=== PATIENT | female | born 1995 | race Caucasian/White ===

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

== ENCOUNTER 2018-09-27 11:23 | Emergency (ER) | payer OTHER ==
[2018-09-27 12:17] VITALS: BP 116/54
[2018-09-27] MEDS ORDERED: ONDANSETRON HCL INJ/PF 4 MG/2 ML SDV IV ONE (12:54)
[2018-09-27] MEDS ORDERED: NORMAL SALINE 1000 ML 1,000 ML IV ONE (12:55)
--- NOTE | 2018-09-27 12:56 | ER Document Report ---
ED Medical Screen (RME) - General Chief Complaint: Vomiting Stated Complaint: POSSIBLE DEHYDRATION Time Seen by Provider: 09/27/18 12:50 Primary Care Provider: KAMILAH MODI MD [Primary Care Provider] - Follow up as needed TRAVEL OUTSIDE OF THE [place] IN LAST 30 DAYS: No - HPI Notes: 09/27/18 12:55 Patient is a 23-year-old female is 39 weeks who presents complaining of nausea and vomiting that began this morning. Patient states that she cannot keep anything down. Patient states that she also started having light contractions yesterday with last episode being here in our waiting room. She was told by the [facility] that they would come down and do an NST here. She is otherwise urinating normally and having normal bowel movements. Denies drug allergies. Denies PICKETT, fever, neck pain, URI, CP, SOB, dysuria, or rash. I have treated and performed a rapid initial assessment of this patient. A comprehensive ED assessment and evaluation of the patient, analysis of test results and completion of medical decision making process will be conducted by additional ED providers. PHYSICAL EXAMINATION: GENERAL: Well-appearing, well-nourished and in no acute distress. A&Ox4. Answers questions appropriately. LUNGS: Breath sounds clear to auscultation bilaterally and equal. No wheezes rales or rhonchi. HEART: Regular rate and rhythm without murmurs, rubs, gallops. ABDOMEN: Soft, gravid abdomen. No guarding, no rebound. Normal bowel sounds present. No CVA tenderness bilaterally (cannot elicit thorough abd exam w/o bed, however). - Related Data Allergies/Adverse Reactions: No Known Allergies Allergy (Verified 11/25/16 21:31) Physical Exam - Vital signs Vitals: Temp Pulse Resp BP Pulse Ox 98.3 F 103 H 18 116/54 L 100 09/27/18 12:15 09/27/18 12:15 09/27/18 12:15 09/27/18 12:15 09/27/18 12:15 Course - Vital Signs Vital signs: Temp Pulse Resp BP Pulse Ox 98.3 F 103 H 18 116/54 L 100 09/27/18 12:15 09/27/18 12:15 09/27/18 12:15 09/27/18 12:15 09/27/18 12:15 Doctor's Discharge - Discharge Referrals: KAMILAH MODI MD [Primary Care Provider] - Follow up as needed
[2018-09-27 14:09] LABS: ABSOLUTE MONOCYTES (AUTO) 0.7 10^3/uL (0.1-1.4); ABSOLUTE NEUT (AUTO) 9.7 10^3/uL (1.7-8.2); BASOPHILS % (AUTO) 0.3 % (0-2); EOSINOPHILS % (AUTO) 0.1 % (0-6); HEMATOCRIT 26.9 % (36.0-47.0); HEMOGLOBIN 8.5 g/dL (12.0-15.5); LYMPHOCYTES % (AUTO) 8.4 % (13-45); MEAN CORPUSCULAR HEMOGLOBIN 21.7 pg (27.0-33.4); MEAN CORPUSCULAR HGB CONC 31.5 g/dL (32.0-36.0); MEAN CORPUSCULAR VOLUME 69 fl (80-97); PLATELET COUNT 335 10^3/uL (150-450); RED BLOOD COUNT 3.91 10^6/uL (3.72-5.28); SEGMENTED NEUTROPHILS % (AUTO) 85.2 % (42-78); TOTAL CELLS COUNTED % (AUTO) 100 %; WHITE BLOOD COUNT 11.4 10^3/uL (4.0-10.5)
--- NOTE | 2018-09-27 14:14 | ER Document Report ---
ED General - General Chief Complaint: Vomiting Stated Complaint: POSSIBLE DEHYDRATION Time Seen by Provider: 09/27/18 12:50 Primary Care Provider: KAMILAH MODI MD [Primary Care Provider] - Follow up as needed TRAVEL OUTSIDE OF THE [place] IN LAST 30 DAYS: No - HPI Notes: 23-year-old female to the emergency department with complaints of nausea and vomiting that started this morning and low back pain and abdominal pain consistent with contractions that began last night. She states that she is 39 weeks with her second child. States the contractions, every 10 minutes and last anywhere from 45 to 60 seconds. Denies any fevers, chills, diarrhea, headache, chest pain, shortness of breath. She was sent here by women's health clinic for further evaluation. She has not had any bloody discharge since her symptoms began. - Related Data Allergies/Adverse Reactions: No Known Allergies Allergy (Verified 09/27/18 14:54) Past Medical History - General Information source: Patient - Social History Smoking Status: Never Smoker Frequency of alcohol use: None Drug Abuse: None Family History: Reviewed & Not Pertinent Patient has suicidal ideation: No Patient has homicidal ideation: No Renal/ Medical History: Denies: Hx Peritoneal Dialysis Past Surgical History: Reports: Hx Oral Surgery - wisdom teeth Review of Systems - Review of Systems Constitutional: denies: Chills, Fever EENT: No symptoms reported Cardiovascular: denies: Chest pain, Palpitations, Heart racing, Syncope, Dizziness, Lightheaded Respiratory: denies: Cough, Short of breath Gastrointestinal: Abdominal pain, Nausea, Vomiting. denies: Diarrhea Musculoskeletal: No symptoms reported Skin: No symptoms reported Neurological/Psychological: denies: Weakness, Numbness -: Yes All other systems reviewed and negative Physical Exam - Vital signs Vitals: Temp Pulse Resp BP Pulse Ox 98.3 F 103 H 18 116/54 L 100 09/27/18 12:15 09/27/18 12:15 09/27/18 12:15 09/27/18 12:15 09/27/18 12:15 Interpretation: Tachycardic - General General appearance: Appears well In distress: None - HEENT Head: Normocephalic, Atraumatic - Respiratory Respiratory status: No respiratory distress Chest status: Nontender Breath sounds: Normal Chest palpation: Normal - Cardiovascular Rhythm: Regular Heart sounds: Normal auscultation Murmur: No - Abdominal Inspection: Gravid female - Gravid abdomen with fundus well above the umbilicus consistent with 39 weeks. Not currently juana. Reports last contraction while in waiting room. Bowel sounds: Normal Tenderness: Nontender - Back Back: Normal, Nontender - Neurological Neuro grossly intact: Yes Cognition: Normal Orientation: AAOx4 [place] Coma Scale Eye Opening: Spontaneous [place] Coma Scale Verbal: Oriented [place] Coma Scale Motor: Obeys Commands [place] Coma Scale Total: 15 Speech: Normal Motor strength normal: LUE, RUE, LLE, RLE Sensory: Normal - Psychological Associated symptoms: Normal affect, Normal mood - Skin Skin Temperature: Warm Skin Moisture: Dry Skin Color: Normal Course - Vital Signs Vital signs: Temp Pulse Resp BP Pulse Ox 98.3 F 103 H 18 116/54 L 100 09/27/18 12:15 09/27/18 12:15 09/27/18 12:15 09/27/18 12:15 09/27/18 12:15 - Laboratory Result Diagrams: 09/27/18 13:47 09/27/18 13:49 Laboratory results interpreted by me: 09/27/18 09/27/18 09/27/18 13:47 13:49 13:49 WBC 11.4 H Hgb 8.5 L Hct 26.9 L MCV 69 L MCH 21.7 L MCHC 31.5 L RDW 17.0 H Seg Neutrophils % 85.2 H Lymphocytes % 8.4 L Absolute Neutrophils 9.7 H Sodium 135.9 L Carbon Dioxide 21 L Creatinine 0.46 L Glucose 64 L Urine Ketones 80 H - Transfer of Care Notes: 09/27/18 14:[address] Warren. She agrees that patient that OB should be called as patient with 39 weeks with nausea vomiting and symptoms consistent with contractions should go to labor and delivery. Dr. Godwin, HOR[employer]AN[employer]ER on-call. She agrees that patient should come to labor and delivery. Spoke with iesha Jesus RN in labor and delivery. Explained to her patient's symptoms and discussion with Dr. Godwin. She where the patient will be sent to labor and delivery. 09/27/18 IMpression: Nausea, vomiting, abdominal pain in 39 week patient. Will send to [facility] for further OB care. Discharge - Discharge Clinical Impression: Abdominal pain, 39 weeks gestation of , Vomiting Disposition: LABOR CHECK Additional Instructions: proceed directly to labor and delivery for further management. Referrals: KAMILAH MODI MD [Primary Care Provider] - Follow up as needed
[2018-09-27 14:18] LABS: APPEARANCE,URINE SLIGHTLY-CLOUDY; BILIRUBIN,URINE NEGATIVE (NEGATIVE); COLOR,URINE YELLOW; GLUCOSE, URINE NEGATIVE (NEGATIVE); KETONES,URINE 80 mg/dL (NEGATIVE); LEUKOCYTE ESTERASE,URINE NEGATIVE (NEGATIVE); NITRITE,URINE NEGATIVE (NEGATIVE); PROTEIN,URINE NEGATIVE (NEGATIVE); URINE SPECIFIC GRAVITY 1.024; UROBILINOGEN,URINE NEGATIVE mg/dL (<2.0)
[2018-09-27 14:28] LABS: ALANINE AMINOTRANSFERASE 22 U/L (9-52); ALBUMIN 3.8 g/dL (3.5-5.0); ALKALINE PHOSPHATASE 125 U/L (38-126); ANION GAP 10 (5-19); ASPARTATE AMINO TRANSFERASE 25 U/L (14-36); BILIRUBIN,DIRECT 0.2 mg/dL (0.0-0.4); BILIRUBIN,TOTAL 0.5 mg/dL (0.2-1.3); BLOOD UREA NITROGEN 11 mg/dL (7-20); CALCIUM 9.4 mg/dL (8.4-10.2); CARBON DIOXIDE 21 mmol/L (22-30); CHLORIDE 105 mmol/L (98-107); LIPASE 108.2 U/L (23-300); POTASSIUM 4.1 mmol/L (3.6-5.0); SODIUM 135.9 mmol/L (137-145); TOTAL PROTEIN 6.7 g/dL (6.3-8.2)
[2018-09-27 14:31] LABS: GLUCOSE 64 mg/dL (75-110)
== END 2018-09-27 14:14 | disposition admitted as inpatient to this hospital (09) ==
LOC: ER 11:23
DX: O21.2 Late vomiting of pregnancy (principal); O26.893 Other specified pregnancy related conditions, third trimester; R10.9 Unspecified abdominal pain; O99.89 Other specified diseases and conditions complicating pregnancy, childbirth and the puerperium; M54.5 Low back pain; Z3A.39 39 weeks gestation of pregnancy
CPT/HCPCS: 99284; 96361; 96374; 36415; 83690; 85025; 80053; 81001; J2405; J7030

== ENCOUNTER 2018-09-27 14:05 | Outpatient (CLI) | payer OTHER ==
[2018-09-27] MEDS ORDERED: RINGERS SOLUTION,LACTATED 1,000 ML IV PRN (14:31)
[2018-09-27] MEDS ORDERED: RINGERS SOLUTION,LACTATED 1,000 ML IV ONE (15:00)
[2018-09-27 15:59] LABS: URINE AMPHETAMINES SCREEN NEGATIVE; URINE BARBITURATES SCREEN NEGATIVE; URINE BENZODIAZEPINES SCREEN NEGATIVE; URINE COCAINE SCREEN NEGATIVE; URINE MARIJUANA (THC) SCREEN NEGATIVE; URINE METHADONE SCREEN NEGATIVE; URINE PHENCYCLIDINE SCREEN NEGATIVE
--- NOTE | 2018-09-27 16:48 | Non Stress Test Report ---
Non Stress Test Datetime Report Generated by CPN: 09/27/2018 16:48 DEMOGRAPHIC EGA NST: 38.5 INDICATION Indication for Study: Ordered by Provider MONITORING Monitor Explained: Monitor Explained; Test Explained; Patient Verbalized Understanding Time on Monitor: 09/27/2018 14:30 Time off Monitor: 09/27/2018 16:21 NST Duration: 111 NST INTERVENTIONS NST Interventions: PO Hydration; IV Fluids Physician Notified NST: Dr. Tato BABY A: [id number] BABY A Movement : Present Contraction Frequency : irregular FHR Baseline : 130 Accelerations : 15X15 Decelerations : None Variability : Moderate 6-25bpm NST Review: Meets Criteria for Reactive NST NST Review and Verified By : LILI DISLA Results: Reactive NST REPORT Report Trigger: Send Report
[2018-09-27 16:59] LABS: APPEARANCE,URINE SLIGHTLY-CLOUDY; BILIRUBIN,URINE NEGATIVE (NEGATIVE); COLOR,URINE YELLOW; GLUCOSE, URINE NEGATIVE (NEGATIVE); KETONES,URINE 80 mg/dL (NEGATIVE); LEUKOCYTE ESTERASE,URINE NEGATIVE (NEGATIVE); NITRITE,URINE NEGATIVE (NEGATIVE); PROTEIN,URINE NEGATIVE (NEGATIVE); URINE SPECIFIC GRAVITY 1.026; UROBILINOGEN,URINE NEGATIVE mg/dL (<2.0)
== END 2018-09-27 17:11 | disposition home or self-care (01) ==
LOC: LC 14:05
PROVIDERS: ATTEND Obstetrics & Gynecology
PROC: 4A1HXCZ Monitoring of Products of Conception, Cardiac Rate, External Approach (ICD-10-PCS; principal; 2018-09-27)
DX: O47.1 False labor at or after 37 completed weeks of gestation (principal); O99.283 Endocrine, nutritional and metabolic diseases complicating pregnancy, third trimester; E86.0 Dehydration; Z3A.38 38 weeks gestation of pregnancy
CPT/HCPCS: 59025; 80307; 81001

== ENCOUNTER 2018-10-01 06:29 | Inpatient (IN) | payer OTHER ==
[2018-10-01] MEDS ORDERED: OXYTOCIN/NORMAL SALINE 20 UNIT/1,000 ML RTUINJ IV PRN ×2 (06:45→16:06)
[2018-10-01] MEDS ORDERED: DINOPROSTONE 10 MG VAGINAL INSERT.SR PV PRN (06:45)
[2018-10-01] MEDS ORDERED: RINGERS SOLUTION,LACTATED 300 ML IV ONE (06:45)
[2018-10-01] MEDS: RINGERS SOLUTION,LACTATED 1,000 ML IV PRN ×4 (07:30→13:41)
[2018-10-01 07:36] LABS: ABSOLUTE LYMPHOCYTES (AUTO) 1.6 10^3/uL (0.5-4.7); ABSOLUTE MONOCYTES (AUTO) 0.7 10^3/uL (0.1-1.4); ABSOLUTE NEUT (AUTO) 4.3 10^3/uL (1.7-8.2); BASOPHILS % (AUTO) 0.2 % (0-2); EOSINOPHILS % (AUTO) 0.2 % (0-6); HEMATOCRIT 24.9 % (36.0-47.0); LYMPHOCYTES % (AUTO) 24.3 % (13-45); MEAN CORPUSCULAR HEMOGLOBIN 22.1 pg (27.0-33.4); MEAN CORPUSCULAR HGB CONC 31.9 g/dL (32.0-36.0); MEAN CORPUSCULAR VOLUME 69 fl (80-97); MONOCYTES % (AUTO) 10.5 % (3-13); PLATELET COUNT 351 10^3/uL (150-450); RED CELL DISTRIBUTION WIDTH 17.6 % (11.5-14.0); SEGMENTED NEUTROPHILS % (AUTO) 64.8 % (42-78); TOTAL CELLS COUNTED % (AUTO) 100 %; WHITE BLOOD COUNT 6.7 10^3/uL (4.0-10.5)
[2018-10-01 07:44] LABS: HEMOGLOBIN 7.9 g/dL (12.0-15.5)
[2018-10-01 07:52] LABS: APPEARANCE,URINE CLOUDY; BILIRUBIN,URINE NEGATIVE (NEGATIVE); GLUCOSE, URINE NEGATIVE (NEGATIVE); KETONES,URINE NEGATIVE (NEGATIVE); LEUKOCYTE ESTERASE,URINE TRACE (NEGATIVE); NITRITE,URINE NEGATIVE (NEGATIVE); PROTEIN,URINE 30 mg/dL (NEGATIVE); URINE SPECIFIC GRAVITY 1.027
[2018-10-01 07:53] LABS: COLOR,URINE YELLOW
--- NOTE | 2018-10-01 08:07 | Admission Physical ---
Datetime Report Generated by CPN: 10/01/2018 08:07 CURRENT ADMISSION Chief Complaint: Other Chief Complaint Other: Here due to Prodromal labor at 39 wks. Admit Impression : Term, Intrauterine ; Intact Membranes Admit Impression- Other: Labor Augmentation Admit Plan: Initiate Labor Protocol; Initiate Labor Augmentation Protocol Admit Plan- Other: Plan Pitocin. Pt desires an epidural when in active labor ALLERGIES Medication Allergies: No Medication Allergies: No Known Allergies (09/27/2018) Latex: No Latex Allergies Food Allergies: None Environmental Allergies: None OBSTETRICAL HISTORY EDC: 10/06/2018 00:00 : 2 Para: 1 Livin Gestational Diabetes: No Rh Sensitization: No Incompetent Cervix: No TWILA: No Infertility: No ART Treatment: No Uterine Anomaly: No IUGR: No Hx Previous C/S: No Macrosomia: Unknown Hx Loss/Stillborn: No PIH: No Hx : No Placenta Previa/Abruption: No Depression/PP Depression: No PTL/PROM: No Post Hemorrhage: No Current Procedures: Ultrasound; NST Obstetrical History Comments: G1- 2016,39 weeks male 8lbs 1 oz, second degree tear G2- Current SEE RECORDS Alcohol: No Marijuana : No Cocaine: No Other Illicit Drugs: No Cigarettes: Current Some Day Smoker. 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: No Heart Disease: No Hosp/Surgery: No Autoimmune Disorder: No Anesthetic Complications: No Kidney Disease: No Abnormal Pap Smear: No Neuro/Epilepsy: No Psychiatric Disorders: No Other Medical Diseases: No Hepatitis/Liver Disease: No Significant Family History: No Varicosities/Phlebitis: No Trauma/Violence : No Thyroid Dysfunction: No Medical History Comments: hyperthyroidism noted with NOB labs, Low B12 INFECTIOUS HISTORY Gonorrhea: No Genital Herpes: No Chlamydia: No Tuberculosis: No Syphilis: No Hepatitis: No HIV/AIDS Exposure: No Rash or Viral Illness: No HPV: No PHYSICAL EXAM General: Normal HEENT: Normal Neurologic: Normal Thyroid: Normal Heart: Normal Lungs: Normal Breast: Normal Back: Normal Abdomen: Normal Genitourinary Exam: Normal Extremities: Normal DTRs: Normal Pelvic Type: Adequate Vital Signs: Reviewed; Within Normal Limits MEMBRANES Membranes: Intact FETUS A EGA: 39.2 Monitoring: External US FHR- Baseline: 140 Variability: Moderate 6-25bpm Accelerations: 15X15 Decelerations: None Admit Comment: at 39 .2 wks, VE per RN, pt still 3 cm. Will start Pitocin to augment. EFW on Leapold's 8 lbs. GBS negative. Plan AROM once making cervical change. Attending MD is Dr Singh PLANS FOR LABOR AND DELIVERY Labor and Delivery: None Pain Management: Epidural Feeding Preference: Breast Benefit of Breast Feed Discussed: Yes Circumcision: Yes INFORMED CONSENT Assignment: Edilia Singh MD Signature: with User ID: Nicole : with User ID: Nicole
[2018-10-01 08:15] LABS: URINE AMPHETAMINES SCREEN NEGATIVE; URINE BARBITURATES SCREEN NEGATIVE; URINE BENZODIAZEPINES SCREEN NEGATIVE; URINE COCAINE SCREEN NEGATIVE; URINE MARIJUANA (THC) SCREEN NEGATIVE; URINE METHADONE SCREEN NEGATIVE; URINE PHENCYCLIDINE SCREEN NEGATIVE
--- NOTE | 2018-10-01 08:29 | Warning Signs in Babies ---
VOD Warning Signs Datetime Report Generated by N: 10/01/2018 08:28 VOD#608 -Warning Signs in Babies: Viewed with Parent(s)/Family (10/01/2018 08:28:Abiel Hooks RN)
[2018-10-01] MEDS ORDERED: LIDOCAINE 1% INJ-PF (10 MG/ML) 30 ML SDV ONE ×2 (08:51→08:54)
[2018-10-01] MEDS ORDERED: OXYTOCIN/NORMAL SALINE 20 UNIT/1,000 ML RTUINJ ONE (08:51)
[2018-10-01] MEDS ORDERED: MISOPROSTOL 0.2 MG TABLET ONE (08:51)
[2018-10-01] MEDS ORDERED: OXYTOCIN 10 UNIT/ML VIAL ONE (08:51)
[2018-10-01] MEDS ORDERED: EPHEDRINE SULFATE INJ 50 MG/1 ML AMPULE ONE (12:28)
[2018-10-01] MEDS ORDERED: FENTANYL CITRATE INJ/PF 100 MCG/2 ML AMPUL ONE (12:28)
[2018-10-01] MEDS ORDERED: PHENYLEPHRINE HCL INJ/PF 10 MG/1 ML SDV ONE (12:28)
[2018-10-01] MEDS ORDERED: FENTANYL/BUPIVACAINE/NS/PF 300 MCG/150 ML RTUINJ EPI ONE (12:28)
[2018-10-01] MEDS ORDERED: BUPIVACAINE HCL 0.25 % INJ/PF (2.5 MG/1 ML) 30 ML VIAL ONE (12:29)
[2018-10-01] MEDS ORDERED: LIDOCAINE 2%/EPINEPHRINE INJ 20 ML VIAL ONE (13:19)
[2018-10-01] MEDS ORDERED: MEASLES,MUMPS&RUBELLA VACC/PF 0.5 ML VIAL SUBCUT PRN (16:06)
[2018-10-01] MEDS ORDERED: MISOPROSTOL 0.2 MG TABLET PO PRN (16:06)
[2018-10-01] MEDS ORDERED: ACETAMINOPHEN WITH CODEINE #3 TABLET PO PRN (16:06)
[2018-10-01] MEDS ORDERED: DIPH/PERTUSS(ACELL)/TETANUS VAC/PF 0.5 ML SYR (>=10YO) IM PRN (16:06)
[2018-10-01] MEDS ORDERED: BENZOCAINE/MENTHOL AEROSOL SPRAY 56 ML TOP PRN (16:06)
[2018-10-01] MEDS ORDERED: ZOLPIDEM TARTRATE 5 MG TABLET PO PRN (16:06)
[2018-10-01] MEDS ORDERED: DIBUCAINE 1% OINTMENT 56 GM TP PRN (16:06)
[2018-10-01] MEDS ORDERED: IBUPROFEN 800 MG TABLET ONE (17:18)
[2018-10-01] MEDS: IBUPROFEN 800 MG TABLET PO SCH (17:23)
[2018-10-01] MEDS ORDERED: DOCUSATE SODIUM 100 MG CAPSULE ONE (18:23)
[2018-10-01] MEDS ORDERED: FERROUS SULFATE 325 MG TABLET PO ONE (18:24)
[2018-10-01] MEDS: DOCUSATE SODIUM 100 MG CAPSULE PO SCH (18:29)
[2018-10-01] MEDS: FERROUS SULFATE 325 MG TABLET PO SCH (18:29)
--- NOTE | 2018-10-01 18:57 | Delivery Summary ---
Del Sum A-C Datetime Report Generated by CPN: 10/01/2018 18:56 DELIVERY PERSONNEL DELIVERY PERSONNEL: [id number] Delivery Doctor:: Dinora Walker CNM Labor and Delivery Nurse:: Abiel Hooks RNadministrator health care facility Nurse:: ISAIAH Heck Student Observers:: Becky AckermanMorrillnito Taylor Tech/NUTRITION DIRECTOR: Loretta Ling CNA II MATERNAL INFORMATION Delivery Anesthesia: Epidural Medications After Delivery: Pitocin Bolus-Please Comment Meds After Delivery Comment: Pitocin 20 units in NS Delivery QBL: 100 Maternal Complications: None Provider Comments: of VMI, DANIELLE, delivered in stable condition, placed on pts abdoman, crying. Cord clamped after 90 seconds. Cord cut, cord blood obtained. Placenta S/C/I, ff w/ decreased lochia. IV Pitocin infusing, 200 mcg SL Cytotec given for PPH prophylaxis. 1st degree laceration repaired. Apgars 9,9. QBL 100 ml. Pt and baby in stable condition, skin to skin. Pt plans to breastfeed. Attending MD is Dr Singh LABOR SUMMARY EDC: 10/06/2018 00:00 No. Babies in Womb: 1 Attempted: No Labor Anesthesia: Epidural LABOR INFORMATION Reason for Induction: Other Reason for Induction- Other: Prodromal labor Onset of Labor: 10/01/2018 12:20 Complete Dilatation: 10/01/2018 15:35 Cervical Ripening Agents: Cervidil; Cytotec @ 200mcg (Annotations: 1 tab po) Oxytocin: Induction Group B Beta Strep: negative Antibiotics # of Doses: 0 Steroids Given: None Reason Steroids Not Administered: Not Applicable MEMBRANES Membranes Rupture Method: Artificial Rupture of Membranes: 10/01/2018 12:20 Length of Rupture (hr): 3.37 Amniotic Fluid Color: Clear Amniotic Fluid Amount: Moderate Amniotic Fluid Odor: Normal STAGES OF LABOR Stage 1 hr: 3 Stage 1 min: 15 Stage 2 hr: 0 Stage 2 min: 7 VAGINAL DELIVERY Episiotomy: None Laceration #1: Perineal Laceration Extension #1: First Degree Laceration Repair: Yes Laceration Repair Note: 1st degree laceration repaired using 3.[address] needle, 1% lidocaine local injection used to numb pts perineal area. Sponge Count Correct: Yes Sharps Count Correct: Yes CSECTION DELIVERY Primary Indication: N/A Secondary Indication: N/A CSection Incidence: N/A Labor: N/A Elective: N/A BABY A INFORMATION Delivery Date/Time: 10/01/2018 15:42 Method of Delivery: Vaginal Born in Route : No : N/A Forceps: N/A Vacuum Extraction: N/A Shoulder Dystocia : No PRESENTATION/POSITION BABY A Presentation: Cephalic Cephalic Presentation: Vertex Vertex Position: Left Occipital Anterior Breech Presentation: N/A PLACENTA INFORMATION BABY A Placenta Method of Delivery: Spontaneous Placenta Status: Delivered SCORES BABY A Heart Rate 1 min: >100 bpm Resp Effort 1 min: Good Cry Reflex Irritability 1 min: Cough or Sneeze or Pulls Away Muscle Tone 1 min: Active Motion Color 1 min: Body [place], Extremities Blue SCORE 1 MIN: 9 Heart Rate 5 min: >100 bpm Resp Effort 5 min: Good Cry Reflex Irritability 5 min: Cough or Sneeze or Pulls Away Muscle Tone 5 min: Active Motion Color 5 min: Body [place], Extremities Blue SCORE 5 MIN: 9 INFANT INFORMATION BABY A Gestational Age at Delivery: 39.2 Gestational Status: Full Term- 39- 40.6 Weeks Outcome : Liveborn Condition : Stable Infant Sex: Male IDENTIFICATION BABY A Infant Verification Date/Time: 10/01/2018 15:53 ID Band Number: [id number] Mother's Name Verified: Yes RN Verifying Infant: T. Jessee, RN and D. Bellavance WEIGHT/LENGTH BABY A Infant Birthweight (gm): 4402 Infant Weight (lb): 9 Infant Weight (oz): 11 Infant Length (in): 20.50 Infant Length (cm): 52.07 CORD INFORMATION BABY A No. Cord Vessels: 3 Nuchal Cord : N/A Cord Blood Taken: Yes-For Eval (Mom's Blood Type - or O+) Infant Suction: None ASSESSMENT BABY A Infant Complications: None Physical Findings at Delivery: Within Normal Limits Respirations: Appears Normal Skin to Skin: Yes Infant Care By: Roland Woodard RN SIGNATURES Assignment: Edilia Singh MD Signature: with User ID: Nicole : with User ID: Nicole
[2018-10-01] MEDS ORDERED: CEFTRIAXONE INJ 1000 MG VIAL ONE ×2 (20:36→20:48)
[2018-10-01] MEDS ORDERED: CEFTRIAXONE INJ 1000 MG VIAL IM ONE (20:46)
[2018-10-01] MEDS ORDERED: CEFTRIAXONE INJ 1000 MG VIAL IV ONE (20:48)
[2018-10-02] MEDS ORDERED: IBUPROFEN 800 MG TABLET ONE (00:52)
[2018-10-02 07:15] LABS: HEMATOCRIT 25.8 % (36.0-47.0); HEMOGLOBIN 8.2 g/dL (12.0-15.5); MEAN CORPUSCULAR HGB CONC 31.8 g/dL (32.0-36.0); MEAN CORPUSCULAR VOLUME 69 fl (80-97); PLATELET COUNT 262 10^3/uL (150-450); RED BLOOD COUNT 3.72 10^6/uL (3.72-5.28); RED CELL DISTRIBUTION WIDTH 17.9 % (11.5-14.0)
--- NOTE | 2018-10-02 09:55 | PDOC PROGRESS REPORT ---
Subjective-OB Progress Note for:: 10/02/18 - PPDay #1, doing well, denies dizziness, SOB. Physical Exam (OB) Vital Signs: Intake & Output 10/01/18 10/02/18 10/03/18 06:59 06:59 06:59 Intake Total 773 Balance 773 Weight 73.3 kg - General General Appearance: Appears well, Alert In distress: None - Lochia Lochia Amount: Small 10-25 ml Lochia Color: Rubra/Red - Abdomen Fundal Description: Firm Fundal Height: u/u - u/2 - Respiratory Respiratory Status: No respiratory distress - Abdominal Distension: No distension Tenderness: Nontender - Genitourinary Genitourinary Note: voiding - Extremities Upper extremity: Normal inspection Lower extremities: Normal inspection - Neurological Cognition: Normal Orientation: AAOx4 Speech: Normal - Psychological Associated symptoms: Normal affect, Normal mood - Skin Skin Temperature: Warm Skin Moisture: Dry Objective-Diagnostic Laboratory: 10/02/18 06:45 10/02/18 06:45 WBC 9.0 RBC 3.72 Hgb 8.2 L Hct 25.8 L MCV 69 L MCH 22.0 L MCHC 31.8 L RDW 17.9 H Plt Count 262 Assessment and Plan(PN) - Assessment and Plan (1) Iron deficiency anemia during Is this a current diagnosis for this admission?: Yes (2) 39 weeks gestation of Is this a current diagnosis for this admission?: Yes (3) Vaginal delivery Is this a current diagnosis for this admission?: Yes - Time Spent with Patient Time with patient: Less than 15 minutes Medications reviewed and adjusted accordingly: Yes - Disposition Anticipated Discharge: Home Within: within 24 hours
[2018-10-02] MEDS: IBUPROFEN 800 MG TABLET PO SCH ×4 (10:05→22:54)
[2018-10-02] MEDS: PRENATAL VITAMIN W DHA CAPSULE PO SCH (10:13)
[2018-10-02] MEDS: FERROUS SULFATE 325 MG TABLET PO SCH ×2 (10:13→17:41)
[2018-10-02] MEDS: SENNOSIDES/DOCUSATE 8.6-50 MG 1 EACH TABLET PO SCH (10:13)
[2018-10-02] MEDS: DOCUSATE SODIUM 100 MG CAPSULE PO SCH ×2 (10:13→17:41)
[2018-10-03] MEDS: IBUPROFEN 800 MG TABLET PO SCH (05:08)
[2018-10-03 08:31] VITALS: BP 121/66
--- NOTE | 2018-10-03 09:53 | PDOC DISCHARGE SUMMARY ---
Final Diagnosis Discharge Date: 10/03/18 - PP day #2, doing well, ambulating w/out difficulty, no c/o dizziness or SOB, - Final Diagnosis (1) Iron deficiency anemia during Is this a current diagnosis for this admission?: Yes (2) 39 weeks gestation of Is this a current diagnosis for this admission?: Yes (3) Vaginal delivery Is this a current diagnosis for this admission?: Yes Discharge Data - Discharge Medication Prescriptions: Ibuprofen [Motrin 800 mg Tablet] 800 mg PO Q8 #60 tablet Home Medications: Vit/Iron Fum/Folic AC [ Tablet] 1 each PO DAILY 11/25/16 Ferrous Sulfate [Feosol 325 mg Tablet] 325 mg PO BID #60 tablet 11/28/16 Ibuprofen [Motrin 800 mg Tablet] 800 mg PO Q8 #60 tablet 10/03/18 Reason(s) for Admission: Onset of Labor Procedures: Ultrasound Intrapartum Procedure(s): Spontaneous Vaginal Delivery Complication(s): Laceration-Perineal Laceration-Degree: 1st - Diagnosis Test Laboratory: Temp Pulse Resp BP Pulse Ox 97.5 F 62 16 121/66 100 10/03/18 07:42 10/03/18 07:42 10/03/18 07:42 10/03/18 07:42 10/03/18 07:42 10/01/18 10/01/18 10/02/18 06:37 07:10 06:45 RBC 3.60 L 3.72 Hgb 7.9 L 8.2 L Hct 24.9 L 25.8 L Urine Opiates Screen NEGATIVE - Discharge information/Instructions Discharge Activity: Activity As Tolerated, No Lifting Over 10 Pounds, Pelvic Rest Discharge Diet: As Tolerated, Regular Disposition: HOME, SELF-CARE Follow up with: [facility] in: 4, Weeks
[2018-10-03] MEDS: SENNOSIDES/DOCUSATE 8.6-50 MG 1 EACH TABLET PO SCH (10:16)
[2018-10-03] MEDS: PRENATAL VITAMIN W DHA CAPSULE PO SCH (10:16)
[2018-10-03] MEDS: DOCUSATE SODIUM 100 MG CAPSULE PO SCH (10:16)
[2018-10-03] MEDS: FERROUS SULFATE 325 MG TABLET PO SCH (10:16)
== END 2018-10-03 15:37 | disposition home or self-care (01) | DRG 807 ==
LOC: LR 06:29 → 2N 10-02 09:37
PROVIDERS: ADMIT Obstetrics & Gynecology; ATTEND Obstetrics & Gynecology
PROC: 10E0XZZ Delivery of Products of Conception, External Approach (ICD-10-PCS; principal; 2018-10-01)
PROC: 0HQ9XZZ Repair Perineum Skin, External Approach (ICD-10-PCS; 2018-10-01)
DX: O99.02 Anemia complicating childbirth (principal); Z37.0 Single live birth; O70.0 First degree perineal laceration during delivery; D50.9 Iron deficiency anemia, unspecified; O99.284 Endocrine, nutritional and metabolic diseases complicating childbirth; E05.90 Thyrotoxicosis, unspecified without thyrotoxic crisis or storm; O99.334 Smoking (tobacco) complicating childbirth; Z3A.39 39 weeks gestation of pregnancy
CPT/HCPCS: 36415; 80307; 81005; 85025; 85027; 86592; 86850; 86900; 86901; J0696; J2370; J2590; J3010; J3490